=== PATIENT | male | born 1995 | race Caucasian/White ===

== ENCOUNTER 2018-11-27 17:14 | Emergency (ER) | payer OTHER ==
[~2018-11-27] VITALS: Ht 180.3 cm; Wt 59.1 kg
[2018-11-27] MEDS ORDERED: AMOX TR/POT CLAV 500 MG/125 MG TABLET PO ONE (17:45)
[2018-11-27] MEDS ORDERED: IBUPROFEN 600 MG TABLET PO ONE (17:45)
[2018-11-27 18:41] VITALS: BP 116/86
== END 2018-11-27 19:05 | disposition home or self-care (01) ==
LOC: EMS 17:14
DX: K04.7 Periapical abscess without sinus (principal); J45.909 Unspecified asthma, uncomplicated

== ENCOUNTER 2024-06-25 23:31 | Emergency (ER) | payer OTHER ==
[~2024-06-25] VITALS: Ht 177.8 cm; Wt 70.0 kg
[2024-06-25 23:46] VITALS: TEMP 98.6
[2024-06-26] MEDS: IBUPROFEN 400 MG TABLET PO ONE (00:36)
[2024-06-26] MEDS: ACETAMINOPHEN 325 MG TABLET PO ONE (00:36)
[2024-06-26 02:43] VITALS: BP 139/72; PULSE 87; RESP 20; O2SAT 100
== END 2024-06-26 02:51 | disposition home or self-care (01) ==
LOC: EMS 23:35
DX: S62.231A Other displaced fracture of base of first metacarpal bone, right hand, initial encounter for closed fracture (principal); J45.909 Unspecified asthma, uncomplicated; I10 Essential (primary) hypertension; W01.0XXA Fall on same level from slipping, tripping and stumbling without subsequent striking against object, initial encounter; Y93.89 Activity, other specified; Y92.89 Other specified places as the place of occurrence of the external cause; Y99.8 Other external cause status
CPT/HCPCS: 99284; 73110-TC; 73130-TC; Z7502; Z7610

== ENCOUNTER 2025-01-16 20:33 | Emergency (ER) | payer MEDICAID, OTHER ==
[~2025-01-16] VITALS: Ht 175.3 cm; Wt 65.9 kg
[2025-01-16 20:54] VITALS: TEMP 98.8
[2025-01-16 21:35] LABS: PLATELET COUNT (AUTO) 356 K/uL (150-450); RED BLOOD CELL COUNT(AUTO) 4.64 MIL/uL (4.50-5.90); RED CELL DISTRIBUTION WIDTH 14.1 % (11.5-14.5); WHITE BLOOD COUNT (AUTO) 10.0 K/uL (4.5-11.0)
[2025-01-16 21:39] LABS: CREATININE 1.15 mg/dL (0.60-1.30); GLUCOSE,RANDOM 129 mg/dL (70-110); SODIUM SERUM 133 mmol/L (136-145); UREA NITROGEN, BLOOD 10 mg/dL (7-18)
[2025-01-16 21:40] LABS: CALCIUM, TOTAL 8.5 mg/dL (8.8-10.5); GLOMERULAR FILTR. RATE CALC > 60 mL/min (>60)
[2025-01-16 21:47] LABS: ASPARTATE AMINOTRANSFERASE 90.0 U/L (15-37); TOTAL PROTEIN, SERUM 7.5 g/dL (6.4-8.2)
[2025-01-16 21:50] LABS: TROPONIN I-HIGH SENSITIVITY 5 ng/L (<76)
[2025-01-16] MEDS: SODIUM CHLORIDE 0.9% 1,000 ML IV ONE (22:49)
[2025-01-16] MEDS: METOCLOPRAMIDE HCL 5 MG/ML 2 ML VIAL IVP ONE (22:50)
[2025-01-16 23:01] VITALS: BP 137/80; PULSE 69; RESP 18; O2SAT 97
[2025-01-16] MEDS: FAMOTIDINE 20 MG/2 ML VIAL IVP ONE (23:10)
== END 2025-01-17 01:37 | disposition home or self-care (01) ==
LOC: EMS 20:33
DX: R10.84 Generalized abdominal pain (principal); J45.909 Unspecified asthma, uncomplicated; K92.0 Hematemesis; F12.90 Cannabis use, unspecified, uncomplicated; Z79.899 Other long term (current) drug therapy
CPT/HCPCS: 99284; 96374; 96361; 96375; 80048; 80076; 83690; 84484; 85025; 36415; 93005; J3490; J2765; J7030